=== PATIENT | male | born 1995 | race Two or more races ===

== ENCOUNTER 2024-02-03 05:02 | Emergency (ER) | payer OTHER ==
[~2024-02-03] VITALS: Ht 177.8 cm; Wt 111.9 kg
[2024-02-03 05:53] LABS: BASO # 0.1 10^3/uL (0.0-0.2); BASO % 0.4 % (0.0-1.0); EOS # 0.1 10^3/uL (0.0-0.5); EOS % 0.4 % (0.0-3.0); HEMATOCRIT 45.4 % (42.0-52.0); HEMOGLOBIN 16.4 g/dl (13.5-17.5); LYMPH # 1.8 10^3/uL (1.5-5.0); MEAN CORPUSCULAR HEMOGLOBIN 32.2 pg (27.0-33.0); MEAN CORPUSCULAR HGB CONC 36.1 g/dl (32.0-36.5); MONO # 1.4 10^3/uL (0.0-0.8); MONO % 10.2 % (2.0-8.0); NEUTROPHILS # 10.5 10^3/uL (1.5-8.5); NEUTROPHILS % 75.5 % (36.0-66.0); PLATELET COUNT, AUTOMATED 212 10^3/uL (150-450); WHITE BLOOD COUNT 13.9 10^3/uL (4.0-10.0)
[2024-02-03] MEDS: NS 1,000 ML IV ONE (06:10)
[2024-02-03 06:16] LABS: ALKALINE PHOSPHATASE 51 U/L (46-116); ALT/SGPT 67 U/L (7.0-40); AST/SGOT 54 U/L (<34); BILIRUBIN,TOTAL 2.1 MG/DL (0.3-1.2); BLOOD UREA NITROGEN 16 MG/DL (9-23); CALCIUM LEVEL 9.2 MG/DL (8.5-10.1); CARBON DIOXIDE LEVEL 23 MMOL/L (20-31); CHLORIDE LEVEL 104 MMOL/L (98-107); GLOMERULAR FILTRATION RATE > 60.0 (>60); GLUCOSE, FASTING 114 MG/DL (60-100); POTASSIUM SERUM 4.3 MMOL/L (3.5-5.1); SODIUM LEVEL 139 MMOL/L (136-145); TOTAL PROTEIN 7.3 G/DL (5.7-8.2)
[2024-02-03] MEDS: KETOROLAC 30 MG/ML 1ML VIAL IV ONE (06:25)
[2024-02-03] MEDS: dexAMETHasone 20MG/5ML VIAL IV ONE (06:25)
[2024-02-03] MEDS: ACETAMINOPHEN TAB 650MG DOSE (2X325MG) PO ONE (06:25)
[2024-02-03] MEDS: PENICILLIN V POTASSIUM 500 MG TAB PO ONE (06:33)
[2024-02-03 07:00] VITALS: BP 116/70
[2024-02-03 07:15] VITALS: O2SAT 93
[2024-02-03 07:35] VITALS: TEMP 100.6
[2024-02-03] MEDS ORDERED: PENI500T PO (08:01)
== END 2024-02-03 08:19 | disposition home or self-care (01) ==
LOC: M ED 05:02
DX: J02.0 Streptococcal pharyngitis (principal); R00.0 Tachycardia, unspecified; Z79.2 Long term (current) use of antibiotics
CPT/HCPCS: 71046; 80053; 83605; 85025; 87040; 87486; 87581; 87633; 87798; 93005; 96374; 99284; J1100; J1885

== ENCOUNTER → 2024-02-17 | Outpatient (REF) ==
[~2024-02-17] MED LIST: PENI500T PO
== END ==
LOC: M PLAIMG 10:03
PROVIDERS: ATTEND Nurse Practitioner Family
DX: Z00.00 Encounter for general adult medical examination without abnormal findings (principal)